=== PATIENT | male | born 1945 | race Caucasian/White ===

== ENCOUNTER → 2018-05-06 | Day surgery (SDC) | payer MEDICARE, BC ==
--- NOTE | 2018-04-30 09:03 | Diagnostic Imaging Report ---
EXAM: CHEST 2 VIEWS, PA and lateral DATE: 04/30/2018 8:20 AM Time stamp on exam: 8:39 AM INDICATION: Preoperative COMPARISON: None FINDINGS: LINES/TUBES: None LUNGS: No consolidations or edema. PLEURA: No effusions or pneumothorax. HEART AND MEDIASTINUM: Normal size and contour. Left hemidiaphragm is elevated with air containing structure beneath the hemidiaphragm present. BONES AND SOFT TISSUES: No acute findings. IMPRESSION: No acute thoracic abnormality with elevated left hemidiaphragm. Signed by: Dr. Wm Landry DO on 04/30/2018 8:59 AM
[2018-04-30 09:07] LABS: BASOPHILS % 0.4 % (0.0-1.0); EOSINOPHILS # (AUTO) 0.1 (0.0-0.4); EOSINOPHILS % 1.8 % (0.0-6.0); HEMATOCRIT 44.8 % (38.2-49.6); LYMPHOCYTES # (AUTO) 1.4 (1.0-3.2); LYMPHOCYTES % 17.8 % (18.0-39.1); MEAN CORPUSCULAR HEMOGLOBIN 29.4 pg (28-32); MEAN CORPUSCULAR HGB CONC 33.5 g/dL (31-35); MEAN CORPUSCULAR VOLUME 87.8 fL (81-99); MONOCYTES # (AUTO) 0.9 (0.2-0.8); MONOCYTES % 11.4 % (4.4-11.3); NEUTROPHILS # (AUTO) 5.4 (2.1-6.9); NEUTROPHILS % 68.2 % (38.7-80.0); PLATELET COUNT 181 x10e3/uL (140-360); RED CELL DISTRIBUTION WIDTH 12.3 % (11.7-14.4)
[~2018-05-06] MED LIST: ACETAMINOPHEN 1000 MG/100 ML 100 ML IV ONE; ASPIRIN325 M2 PO; AZELASTINE137 MCG/0.; CEFAZOLIN SOD 1 GM/D5W 50ML 50 ML IV ONE; CO Q-10200 MG PO; DEXAMETHASONE SOD PHOS INJ 4 MG/ML VIAL ONE; ELIDEL30 GM TP; FENTANYL CITRATE/PF 100MCG/2 ML INJ ONE; FLOVENT DISKUS50 MCG; GLYCOPYRROLATE INJ 1MG/ 5 ML SYR ONE; HYDROCODONE/AP1 EAC1 PO; LIDOCAINE 1% W/EPINEPHRINE 20 ML VIAL ONE; LIDOCAINE HCL 2% LOCAL INJ 5 ML SDV VIAL INJ ONE; MEGA MEN PO; MEN'S ONE DAIL1 EACH PO; METOPROLOL SUCC25 MG PO; MIDAZOLAM HCL 2 MG/2 ML VIAL ONE; MUPIROCIN 2% OINT 22 GM TUBE ONE; NEOSTIGMINE 5 MG/5ML SYR ONE; NITROGLYCERIN0.4 MG SL; ONDANSETRON HCL INJ 2 MG/ML VIAL ONE; PHENYLEPHRINE HCL 1% 10 MG/ML VIAL ONE; PRAZOSIN HCL1 MG PO; PREVACID PO; PROPOFOL IV EMULSION 10 MG/ML 20 ML VIAL ONE; ROCURONIUM BROMIDE 10 MG/ML 5ML VIAL ONE; SEVOFLURANE INHAL SOLN 250 ML PEN BTL ONE; VITAMIN D-32000 UNIT PO; Z.0.AMLODIPINE BESYL PO; Z.0.ATENOLOL25 MG PO; Z.0.XANAX0.5 MG PO; [UNRECOGNIZED DRUG - OTHER]; [UNRECOGNIZED DRUG - OTHER] PO
--- NOTE | 2018-05-06 07:10 | NUR ---
SPIRITUAL CARE - Pre-Surgery Assessment: Pt in bed. Pt's at bedside. Pt reported supportive attention from family and friends. Intervention: I provided pastoral presence, hospitality, and sympathetic listening. I acquainted pt with availability of health nurse while hospitalized. Outcome: Pt expressed appreciation for visit. No need for follow up indicated at this time. WILLIE [facility] Spiritual Care Department O: [phone] Pager: [phone] ([phone] calling from)
[2018-05-06 10:30] VITALS: BP 132/80
--- NOTE | 2018-05-06 13:51 | Operative Report ---
DATE OF PROCEDURE: May 06, 2018 PREOPERATIVE DIAGNOSIS: Malignant melanoma, chin. POSTOPERATIVE DIAGNOSIS: Malignant melanoma, chin; Mohs micrographic surgery, defect 25 cm2. PROCEDURES 1. Excisional preparation of recipient site, 25 cm2. 2. Full thickness skin grafting, left chin, 25 cm2 with primary closure donor site. ANESTHESIA: General. HISTORY: The patient is a 73-year-old male who yesterday underwent Mohs micrographic removal of a malignant melanoma involving the left chin region. The defect measures approximately 5 cm x 5 cm in both length and width. It is a full thickness defect. The risks, benefits, and alternatives to flap closure versus full thickness skin grafting were discussed with the patient and the family in detail. They have opted for full thickness skin grafting.\ PROCEDURE: Patient was marked preoperatively in the holding area. He was brought to the operating theater and after the induction of adequate general anesthesia, he is prepped and draped in a supine position. A time-out is performed. The edges of the Mohs defect were sharply excised of all devitalized partial thickness areas. The wound edges were made hemostatic using the electrocautery. The template of the defect was measured out and marked and then transferred onto the left anterior chest wall. After marking out excision of a full thickness skin graft, the left chest soft tissues were infiltrated with 1% Xylocaine with epinephrine. A total of 15 mL was used. The incision in the left chest was made through the skin and subcutaneous tissues. Bleeding was controlled using the electrocautery. A full thickness graft was then harvested and placed in a saline-soaked gauze pad. The wound was made hemostatic using the electrocautery and using electrocautery, the skin edges and soft tissues were undermined widely in order to allow a tension-free closure. A 3-0 Monocryl in an interrupted buried fashion was used to approximate the deep dermis and then the 4-0 Monocryl running subcuticular stitch was used to approximate the superficial epidermis. Steri-Strips were applied to the incision. The full thickness skin graft was de-fatted down to the deep dermal layer using SuperCut scissors. It was then placed onto the Mohs defect and secured in place using 5-0 chromic sutures. The graft was tailored to fit the dimensions of the wound. Once the graft had been completely sutured to the wound bed, 4-0 silk sutures were used circumferentially approximately 1 cm away from the wound as a bolster tie-over sutures. Bactroban ointment, Xeroform gauze, and moistened cotton balls were then placed in that order over the graft. Xeroform was placed over the cotton balls and then the silk sutures were tied in a bolster-type fashion. The estimated blood loss for procedure was 10 to 15 mL. The patient tolerated the procedure well, was brought to recovery room in satisfactory condition, and discharged with a postoperative instruction sheet as well as a followup appointment. Job#: [id number] ED
== END | disposition home or self-care (01) ==
LOC: OR 05:10
PROVIDERS: ATTEND Plastic Surgery
DX: Z48.3 Aftercare following surgery for neoplasm (principal); Z85.820 Personal history of malignant melanoma of skin; I10 Essential (primary) hypertension; I25.10 Atherosclerotic heart disease of native coronary artery without angina pectoris; E78.5 Hyperlipidemia, unspecified; K21.9 Gastro-esophageal reflux disease without esophagitis; E66.01 Morbid (severe) obesity due to excess calories; F41.9 Anxiety disorder, unspecified; Z01.810 Encounter for preprocedural cardiovascular examination; Z01.812 Encounter for preprocedural laboratory examination; Z01.818 Encounter for other preprocedural examination; Z86.73 Personal history of transient ischemic attack (TIA), and cerebral infarction without residual deficits
CPT/HCPCS: 15240; 15241; 36415; 71046; 85025; 93005; J0131; J0690; J1100; J2001; J2250; J2370; J2405; J2704; J3490